=== PATIENT | male | born 1935 | race Hispanic/Latino ===

== ENCOUNTER 2019-11-05 12:45 | Emergency (ER) | payer OTHER ==
[~2019-11-05] VITALS: Ht 167.6 cm; Wt 72.2 kg
[~2019-11-05 12:45] MED LIST: DEXILANT60 MG; LEVAQUIN500 MG PO; NEXIUM PO; REGLAN5 MG PO; Z.0.CARAFATE1 GM PO; Z.0.OMEPRAZOLE20 M1 PO
--- OUTSIDE RECORDS SUMMARY | 2019-11-05 12:48 | XMS REPORT ---
Author Author [facility] Address Unknown Phone Unavailable Care Team Providers Care Capacity Management Specialist Name Role Phone Unavailable Unavailable Payers Payer Name Policy Type Policy Number Effective Date Expiration Date Problems This patient has no known problems. Allergies, Adverse Reactions, Alerts This patient has no known allergies or adverse reactions. Medications This patient has no known medications.
[2019-11-05] MEDS ORDERED: HYDROCODONE/APAP 5MG-325MG TAB PO ONE (13:15)
[2019-11-05] MEDS ORDERED: ONDANSETRON HCL INJ 2MG/ML 2ML 2 MG/ML VIAL IV PRN (13:15)
[2019-11-05] MEDS ORDERED: ONDANSETRON HCL INJ 2MG/ML 2ML 2 MG/ML VIAL ONE (13:45)
[2019-11-05] MEDS ORDERED: HYDROCODONE/APAP 5MG-325MG TAB ONE (13:46)
--- NOTE | 2019-11-05 13:49 | Diagnostic Imaging Report ---
EXAMINATION: CXR 2 VIEW - HOPD INDICATION: Chest pain COMPARISON: None FINDINGS: LINES/TUBES:None LUNGS:The lungs are well-inflated. Biapical pleural parenchymal thickening/scarring. Mild left basilar subsegmental atelectasis. No focal pneumonia or pulmonary edema. PLEURA:No pleural effusion or pneumothorax. MEDIASTINUM:The cardiomediastinal silhouette appears normal in size and shape. Atherosclerotic calcifications of the thoracic aorta. BONES/SOFT TISSUES:No acute osseous injury. ABDOMEN:No free air under the diaphragm. Status post cholecystectomy. IMPRESSION: No focal pneumonia or pulmonary edema. Left basilar subsegmental atelectasis. Signed by: Preethi Jon MD on 11/05/2019 1:46 PM
--- NOTE | 2019-11-05 14:48 | Diagnostic Imaging Report ---
EXAM: CT Abdomen and Pelvis WITH intravenous contrast INDICATION: Back pain, flank pain COMPARISON: None. TECHNIQUE: Abdomen and pelvis were scanned utilizing a multidetector helical scanner from the lung base to the pubic symphysis after administration of IV contrast. Coronal and sagittal reformations were obtained. Routine protocol was performed. Scan was performed during portal venous phase. IV CONTRAST: 100mL of Isovue 370 ORAL CONTRAST: None RADIATION DOSE: Total DLP: 635 mGy*cm Dose modulation, iterative reconstruction, and/or weight based adjustment of the mA/kV was utilized to reduce the radiation dose to as low as reasonably achievable. FINDINGS: LOWER THORAX: 6 mm right middle lobe pulmonary nodule. Bibasilar dependent subsegmental atelectasis. HEPATOBILIARY: No focal liver lesion. No biliary ductal dilation. Status post cholecystectomy. SPLEEN: No splenomegaly. PANCREAS: No focal masses or ductal dilatation. ADRENALS: No adrenal nodules. KIDNEYS/URETERS: Left kidney is absent. Numerous right renal cysts appear simple and measure up to 4 cm. No hydronephrosis. 6 mm nonobstructive right lower pole renal calculus. PELVIC ORGANS/BLADDER: The prostate measures 5.0 x 4.8 x 4.5 cm (volume estimate of 56 cc). PERITONEUM / RETROPERITONEUM: No free air. No free fluid. LYMPH NODES: No lymphadenopathy. VESSELS: Mild atherosclerotic calcifications of the nonaneurysmal abdominal aorta and major branches. GI TRACT: Diverticulosis without CT evidence of diverticulitis. No abnormal bowel thickening. No bowel obstruction. BONES AND SOFT TISSUES: No acute osseous injury. No suspicious lytic or blastic lesions. Dextro convex curvature of the upper lumbar spine. IMPRESSION: 6 mm nonobstructive right lower pole renal calculus. No hydronephrosis. Numerous right simple appearing renal cysts measure up to 4 cm. Prostatomegaly with volume estimate of 56 cc. 6 mm right middle lobe pulmonary nodule. If the patient is high risk, chest CT follow-up is optional at 12 months. If the patient is low risk, no further imaging follow-up is necessary. Signed by: Preethi Jon MD on 11/05/2019 2:44 PM
[2019-11-05 18:13] VITALS: BP 141/69
== END 2019-11-05 15:39 | disposition home or self-care (01) ==
LOC: FSED 12:45
DX: M54.6 Pain in thoracic spine (principal); I10 Essential (primary) hypertension; N28.9 Disorder of kidney and ureter, unspecified
CPT/HCPCS: 71046; 74176; 80053; 81003; 83880; 85025; 85379; 96374; 99284; J2405

== ENCOUNTER → 2020-05-13 | Day surgery (SDC) | payer MEDICARE, OTHER ==
[2020-05-10 11:30] LABS: BASOPHILS % 0.3 % (0.0-1.0); EOSINOPHILS # (AUTO) 0.1 (0.0-0.4); EOSINOPHILS % 0.8 % (0.0-6.0); HEMATOCRIT 39.6 % (38.2-49.6); LYMPHOCYTES # (AUTO) 1.2 (1.0-3.2); MEAN CORPUSCULAR HEMOGLOBIN 29.1 pg (28-32); MEAN CORPUSCULAR HGB CONC 32.8 g/dL (31-35); MEAN CORPUSCULAR VOLUME 88.8 fL (81-99); MONOCYTES # (AUTO) 0.6 (0.2-0.8); MONOCYTES % 7.4 % (4.4-11.3); NEUTROPHILS # (AUTO) 5.9 (2.1-6.9); NEUTROPHILS % 76.2 % (38.7-80.0); PLATELET COUNT 265 x10e3/uL (140-360); RED BLOOD COUNT 4.46 x10e6/uL (4.3-5.7); RED CELL DISTRIBUTION WIDTH 13.5 % (11.7-14.4)
[~2020-05-13] MED LIST changes: +ATORVASTATIN CA20 MG PO; +FUROSEMIDE40 MG PO; +LIDOCAINE HCL 2% LOCAL INJ 5 ML SDV VIAL INJ ONE; +PANTOPRAZOLE SO20 MG; +PROPOFOL IV EMULSION 10 MG/ML 20 ML VIAL ONE
[2020-05-13 09:25] VITALS: BP 144/70
== END | disposition home or self-care (01) ==
LOC: OR 06:35
PROVIDERS: ATTEND Internal Medicine Gastroenterology
DX: K29.50 Unspecified chronic gastritis without bleeding (principal); K22.2 Esophageal obstruction; K21.0 Gastro-esophageal reflux disease with esophagitis; K44.9 Diaphragmatic hernia without obstruction or gangrene; Z71.3 Dietary counseling and surveillance; R63.4 Abnormal weight loss; E66.3 Overweight; I10 Essential (primary) hypertension; Z88.1 Allergy status to other antibiotic agents; Z01.810 Encounter for preprocedural cardiovascular examination; Z01.812 Encounter for preprocedural laboratory examination; Z11.59 Encounter for screening for other viral diseases; Z68.25 Body mass index [BMI] 25.0-25.9, adult
CPT/HCPCS: 36415; 43239; 85025; 88305; 88312; 93005; J2001; U0002; J2704

== ENCOUNTER 2021-08-07 16:08 | Emergency (ER) | payer MEDICARE ==
[~2021-08-07] VITALS: Ht 165.1 cm; Wt 70.3 kg
[~2021-08-07 16:08] MED LIST changes: -LIDOCAINE HCL 2% LOCAL INJ 5 ML SDV VIAL INJ ONE; -PROPOFOL IV EMULSION 10 MG/ML 20 ML VIAL ONE
[2021-08-07] MEDS ORDERED: PREDNISONE20 MG PO (16:51)
[2021-08-07] MEDS ORDERED: VALTREX1000 MG PO (16:51)
[2021-08-07] MEDS ORDERED: PREDNISONE 20 MG TAB ONE (16:52)
[2021-08-07] MEDS ORDERED: PREDNISONE 20 MG TAB PO ONE (17:00)
== END 2021-08-07 16:53 | disposition home or self-care (01) ==
LOC: FSED 16:12
DX: G51.0 Bell's palsy (principal); I10 Essential (primary) hypertension; E78.5 Hyperlipidemia, unspecified; K21.9 Gastro-esophageal reflux disease without esophagitis; Z85.528 Personal history of other malignant neoplasm of kidney
CPT/HCPCS: 70450; 99282; J7512

== ENCOUNTER 2022-02-03 15:36 | Emergency (ER) | payer MEDICARE ==
[~2022-02-03] VITALS: Ht 170.2 cm; Wt 69.4 kg
[~2022-02-03 15:36] MED LIST changes: +PREDNISONE20 MG PO; +VALTREX1000 MG PO
[2022-02-03] MEDS ORDERED: ONDANSETRON HCL INJ 2MG/ML 2ML 2 MG/ML VIAL IV STA (16:33)
[2022-02-03] MEDS ORDERED: SODIUM CHLORIDE 0.9% 1000ML 1,000 ML IV SCH (16:45)
[2022-02-03] MEDS ORDERED: ONDANSETRON HCL INJ 2MG/ML 2ML 2 MG/ML VIAL ONE (17:24)
[2022-02-03] MEDS ORDERED: SODIUM CHLORIDE 0.9% 1000ML 1,000 ML ONE (17:24)
[2022-02-03] MEDS ORDERED: LEVOFLOXACIN 500MG/D5W 100ML 100 ML IV ONE ×2 (17:25→17:30)
[2022-02-03] MEDS ORDERED: LEVOFLOXACIN250 MG PO (19:31)
[2022-02-03] MEDS ORDERED: ONDANSETRON ODT4 MG PO (19:32)
[2022-02-03 19:38] VITALS: BP 134/61
== END 2022-02-03 19:38 | disposition home or self-care (01) ==
LOC: FSED 15:43
DX: K52.9 Noninfective gastroenteritis and colitis, unspecified (principal); U07.1 COVID-19; D64.9 Anemia, unspecified; E11.22 Type 2 diabetes mellitus with diabetic chronic kidney disease; I12.9 Hypertensive chronic kidney disease with stage 1 through stage 4 chronic kidney disease, or unspecified chronic kidney disease; N18.4 Chronic kidney disease, stage 4 (severe); E78.5 Hyperlipidemia, unspecified; K21.9 Gastro-esophageal reflux disease without esophagitis; N20.0 Calculus of kidney; N40.0 Benign prostatic hyperplasia without lower urinary tract symptoms; Z79.899 Other long term (current) drug therapy; Z85.528 Personal history of other malignant neoplasm of kidney; Z90.5 Acquired absence of kidney
CPT/HCPCS: 74176; 80048; 80076; 81003; 82553; 84484; 85025; 87086; 93005; 96374; 99284; J1956; J2405; J7030